=== PATIENT | male | born 1935 | race Caucasian/White ===

== ENCOUNTER 2017-01-25 18:47 | Emergency (ER) | payer MEDICARE ==
--- NOTE | 2017-01-26 11:00 | ER ---
ADMIT: 01/25/2017 RM/LOC: ER [facility] MR#: [id number] [address] [facility] [address] [place] [id number] JENNIFER DOBSON [address] [place] [address] Emergency Room Report SEX: M AGE: 81 : 1935 DATE: 01/25/2017 CHIEF COMPLAINT: Left hip pain. HISTORY OF PRESENT ILLNESS: An 81-year-old, male presents with a week's duration of worsening left hip pain. States he has not seen his primary care provider for this. He primarily presents because he wants cortisone injection in his left hip. States he is having increasing difficulty walking. This has not been x-rayed, has not been evaluated, and when he had his status post bilateral knee replacements, is wondering if his left knee replacement is also having issues. PAST MEDICAL HISTORY: 1. Hypertension. 2. Chronic knee pain. 3. Hernia. 4. Alcoholism. COURSE IN THE EMERGENCY ROOM: The patient was seen and examined. GENERAL: Afebrile and nontoxic, in no acute distress. He has some tenderness to palpation over the lateral hip. He has some pain with log roll of the left lower extremity. Sensation is intact to light touch. He is able to ambulate, however with difficulty secondary to pain. The limb itself is warm and dry. X-rays of the left hip were reviewed, shows no acute fractures. It does show advanced degenerative changes. He was given 50 mg of Ultram p.o. while in the department. He is now able to ambulate with less pain. CLINICAL IMPRESSION: Left hip degenerative joint disease. DISPOSITION: Discharged home. He is to follow up with primary care provider for further recommendations regarding management of his left hip pain if this is something that is amenable to physical therapy versus surgical intervention. I would defer to primary care to make these decisions. I will discharge him with a script for Ultram 50 mg tabs one tab p.o. every 6 hours as needed for pain #20. He is to follow up with his primary care physician in the next week. Discharged home in stable condition. GISELLE Rosas / Justin George MD / ezekiel JOB #: [id number] CC: Arnaldo Sosa MD, Attending Physician
== END 2017-01-25 21:06 | disposition home or self-care (01) ==
LOC: ER 18:47
DX: M16.12 Unilateral primary osteoarthritis, left hip (principal); I10 Essential (primary) hypertension; F17.200 Nicotine dependence, unspecified, uncomplicated; Z98.890 Other specified postprocedural states